=== PATIENT | female | born 1995 | race Caucasian/White ===

== ENCOUNTER 2019-06-21 02:45 | Emergency (ER) | payer SELFPAY ==
[2019-06-21 02:47] VITALS: BP 189/124; PULSE 95; RESP 18; TEMP 36.8; O2SAT 96; BMI 26.4
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
[2019-06-21] MEDS: ondansetron 4 MG Tablet PO (03:07)
[2019-06-21 03:44] VITALS: BP 156/100; PULSE 88; RESP 16; O2SAT 97
== END 2019-06-21 03:46 | disposition home or self-care (01) ==
PROVIDERS: Emergency Provider Emergency Medicine
DX: S79.922A Unspecified injury of left thigh, initial encounter (principal); S79.921A Unspecified injury of right thigh, initial encounter; F17.200 Nicotine dependence, unspecified, uncomplicated; V58.0XXA Driver of pick-up truck or van injured in noncollision transport accident in nontraffic accident, initial encounter
CPT/HCPCS: 12345; 99281; 99283; Q0162